=== PATIENT | female | born 2000 | race Hispanic/Latino ===

== ENCOUNTER → 2018-03-09 | Outpatient (REF) | payer OTHER ==
[2018-03-09 18:38] LABS: HEMATOCRIT 40.6 % (36.0-47.0); HEMOGLOBIN 13.2 g/dl (12.0-15.5); MEAN CORPUSCULAR HEMOGLOBIN 27.4 pg (27.0-33.0); MEAN CORPUSCULAR HGB CONC 32.5 g/dl (32.0-36.5); MEAN CORPUSCULAR VOLUME 84.2 fl (80.0-96.0); PLATELET COUNT, AUTOMATED 335 10^3/uL (150-450); RED BLOOD COUNT 4.82 10^6/uL (4.00-5.40); WHITE BLOOD COUNT 9.6 10^3/uL (4.0-10.0)
[2018-03-09 19:17] LABS: ALBUMIN 3.9 GM/DL (3.2-5.2); ALT/SGPT 45 U/L (12-78); BILIRUBIN,TOTAL 0.3 MG/DL (0.2-1.0); BLOOD UREA NITROGEN 12 MG/DL (7-18); CALCIUM LEVEL 8.8 MG/DL (8.5-10.1); CARBON DIOXIDE LEVEL 27 MEQ/L (21-32); CHLORIDE LEVEL 103 MEQ/L (98-107); CREATININE FOR GFR 0.75 MG/DL (0.55-1.30); FREE T4 0.96 NG/DL (0.78-1.33); GLUCOSE, FASTING 63 MG/DL (70-100); POTASSIUM SERUM 4.5 MEQ/L (3.5-5.1); SODIUM LEVEL 138 MEQ/L (136-145); TOTAL PROTEIN 7.7 GM/DL (6.4-8.2)
== END ==
LOC: M SFHCPLAZ 15:43
PROVIDERS: ATTEND Physician Assistant
DX: Z00.00 Encounter for general adult medical examination without abnormal findings (principal); G43.119 Migraine with aura, intractable, without status migrainosus; Z23 Encounter for immunization
CPT/HCPCS: 36415; 80053; 84439; 84443; 85027; 90471; 90686; G0463

== ENCOUNTER 2018-07-06 22:55 | Emergency (ER) | payer OTHER ==
[~2018-07-06] VITALS: Ht 165.1 cm; Wt 112.3 kg
[2018-07-06] MEDS ORDERED: EXCETAB33 PO (23:08)
[2018-07-06] MEDS ORDERED: PROAAER10 INH (23:08)
--- NOTE | 2018-07-07 00:18 | REPVR ---
EXAM: CT Head Without Contrast EXAM DATE/TIME: 07/06/2018 11:31 PM CLINICAL HISTORY: 17 years old, female; Signs and symptoms; Dizziness; Additional info: Tr TECHNIQUE: Imaging protocol: Axial computed tomography images of the head/brain without contrast. Radiation optimization: All CT scans at this facility use at least one of these dose optimization techniques: automated exposure control; mA and/or kV adjustment per patient size (includes targeted exams where dose is matched to clinical indication); or iterative reconstruction. COMPARISON: No relevant prior studies available. FINDINGS: Brain: Normal. No hemorrhage. No significant white matter disease. No edema. Ventricles: Normal. No ventriculomegaly. Bones/joints: Unremarkable. No acute fracture. Sinuses: Visualized sinuses are unremarkable. No acute sinusitis. Mastoid air cells: Visualized mastoid air cells are unremarkable. No mastoid effusion. Soft tissues: Unremarkable. IMPRESSION: No acute intracranial abnormality. Electronically signed by: Deana Bhakta On 07/07/2018 00:17:52 AM
[2018-07-07 00:30] VITALS: BP 151/87
[2018-07-07] MEDS ORDERED: KETOROLAC 60 MG/2 ML VIAL (J1885) IM ONE (00:30)
--- NOTE | 2018-07-07 15:34 | ECGEPIP ---
Stationary ECG Study [facility] - ED Test Date: 2018-07-06 Pat Name: MARS WALKER Department: Room: - Gender: F Ply Bander: gt : 2000 Requested By: SRIDEVI ULLOA Order Number: [id number] Reading MD: Eric Ardon Measurements Intervals [place] Rate: 85 P: 13 HI: 146 QRS: 21 QRSD: 94 T: 3 QT: 352 QTc: 421 Interpretive Statements SINUS RHYTHM Comparison tracing not on file Electronically Signed On 07-07-2018 15:34:14 EDT by Eric Ardon
== END 2018-07-07 00:52 | disposition home or self-care (01) ==
LOC: EDBD 22:55 → M ED 22:55
DX: G43.909 Migraine, unspecified, not intractable, without status migrainosus (principal); S00.83XA Contusion of other part of head, initial encounter; W01.0XXA Fall on same level from slipping, tripping and stumbling without subsequent striking against object, initial encounter; Y92.012 Bathroom of single-family (private) house as the place of occurrence of the external cause
CPT/HCPCS: 70450; 93005; 96372; 99284; J1885